=== PATIENT | female | born 1950 | race Caucasian/White ===

== ENCOUNTER 2021-05-07 07:55 | Day surgery (SDC) | payer OTHER, MEDICARE ==
[2021-05-07] MEDS ORDERED: methylPREDNISolone NA SUCC 125 MG/2 ML VIAL IVPUSH ONE (09:00)
[2021-05-07] MEDS ORDERED: ACETAMINOPHEN 500 MG TABLET (FP) PO ONE (09:30)
[2021-05-07] MEDS ORDERED: diphenhydrAMINE HCL 25 MG CAPSULE (FP) PO ONE (09:30)
[2021-05-07 09:38] LABS: BASO % 1.3 % (0-2.0); EOS % 2.1 % (0-4.5); HEMATOCRIT 40.2 % (32.4-45.2); LYMPH % 20.4 % (8-40); MCH 29.3 pg (25.7-33.7); MCHC 32.4 g/dl (32.0-36.0); MEAN CELL VOLUME 90.4 fl (80-96); MEAN PLT VOLUME 8.8 fl (7.5-11.1); MONO % 7.7 % (3.8-10.2); NEUT % 68.5 % (42.8-82.8); PLATELET COUNT 257 10^3/uL (134-434); RBC 4.45 M/mm3 (3.60-5.2); RDW 14.5 % (11.6-15.6); WHITE BLOOD COUNT 7.5 K/mm3 (4.0-10.0)
[2021-05-07 09:53] LABS: CALCIUM 9.7 mg/dL (8.5-10.1)
[2021-05-07 09:54] LABS: ALBUMIN 3.8 g/dl (3.4-5.0); BLOOD UREA NITROGEN 29.6 mg/dL (7-18)
[2021-05-07 09:57] LABS: CREATININE 1.1 mg/dL (0.55-1.3); TOT PROT 7.8 g/dl (6.4-8.2)
[2021-05-07 09:58] LABS: BILIRUBIN,TOTAL 0.3 mg/dL (0.2-1)
[2021-05-07] MEDS ORDERED: RITUXIMAB-ABBS 1,000 MG in DEXTROSE 5%-WATER - 400 ML IVPB ONE (10:00)
[2021-05-07 15:22] VITALS: BP 153/70; PULSE 85; TEMP 98
== END 2021-05-07 17:30 | disposition home or self-care (01) ==
LOC: JCHEMO 07:55 → J7W 07:56 → JCHEMO 17:30
PROVIDERS: ATTEND Internal Medicine Rheumatology
DX: M06.9 Rheumatoid arthritis, unspecified (principal); J84.9 Interstitial pulmonary disease, unspecified
CPT/HCPCS: 36415; 80053; 85025; 96367; 96413; 96415; Q5115

== ENCOUNTER 2021-05-22 08:26 | Day surgery (SDC) | payer OTHER, MEDICARE ==
[2021-05-22] MEDS ORDERED: methylPREDNISolone NA SUCC 125 MG/2 ML VIAL IVPUSH ONE (08:30)
[2021-05-22] MEDS ORDERED: ACETAMINOPHEN 500 MG TABLET (FP) PO ONE (08:30)
[2021-05-22] MEDS ORDERED: diphenhydrAMINE HCL 25 MG CAPSULE (FP) PO ONE (08:30)
[2021-05-22] MEDS ORDERED: methylPREDNISolone NA SUCC 125 MG/2 ML VIAL IVPB ONE ×2 (08:45)
[2021-05-22] MEDS ORDERED: RITUXIMAB-ABBS 1,000 MG in DEXTROSE 5%-WATER - 400 ML IVPB ONE (09:00)
[2021-05-22 17:57] VITALS: BP 127/64; PULSE 75; TEMP 98.2
== END 2021-05-22 13:36 | disposition home or self-care (01) ==
LOC: JCHEMO 08:26
PROVIDERS: ATTEND Internal Medicine Rheumatology
PROC: 3E03305 Introduction of Other Antineoplastic into Peripheral Vein, Percutaneous Approach (ICD-10-PCS; principal; 2021-05-22)
PROC: 3E033GC Introduction of Other Therapeutic Substance into Peripheral Vein, Percutaneous Approach (ICD-10-PCS; 2021-05-22)
DX: M06.9 Rheumatoid arthritis, unspecified (principal); Z88.0 Allergy status to penicillin
CPT/HCPCS: 96367; 96413; 96415; Q5115

== ENCOUNTER 2022-01-06 08:49 | Day surgery (SDC) | payer OTHER, MEDICARE ==
[2022-01-06] MEDS ORDERED: METHYLPREDNISOLONE NA SUCC 100 MG in SODIUM CHLORIDE 50 ML IVPB ONE (10:00)
[2022-01-06] MEDS ORDERED: methylPREDNISolone NA SUCC 125 MG/2 ML VIAL IVPUSH ONE (10:00)
[2022-01-06] MEDS ORDERED: ACETAMINOPHEN 500 MG TABLET (FP) PO ONE (10:00)
[2022-01-06] MEDS ORDERED: diphenhydrAMINE HCL 25 MG CAPSULE (FP) PO ONE (10:00)
[2022-01-06] MEDS ORDERED: RITUXIMAB-ABBS 1,000 MG in DEXTROSE 5%-WATER - 400 ML IVPB ONE (10:30)
[2022-01-06 14:59] VITALS: BP 150/81; PULSE 100; RESP 18; TEMP 98.2
== END 2022-01-06 15:44 | disposition home or self-care (01) ==
LOC: JCHEMO 08:49 → J7W 08:50 → JCHEMO 15:44
PROVIDERS: ATTEND Internal Medicine Rheumatology
DX: M06.9 Rheumatoid arthritis, unspecified (principal)
CPT/HCPCS: 96367; 96413; 96415; Q5115

== ENCOUNTER 2022-01-20 07:56 | Day surgery (SDC) | payer OTHER, MEDICARE ==
[2022-01-20] MEDS ORDERED: METHYLPREDNISOLONE NA SUCC 100 MG in SODIUM CHLORIDE 50 ML IVPB ONE (09:00)
[2022-01-20] MEDS ORDERED: ACETAMINOPHEN 500 MG TABLET (FP) PO ONE (09:00)
[2022-01-20] MEDS ORDERED: diphenhydrAMINE HCL 25 MG CAPSULE (FP) PO ONE (09:00)
[2022-01-20] MEDS ORDERED: RITUXIMAB-ABBS 1,000 MG in DEXTROSE 5%-WATER - 400 ML IVPB ONE (09:30)
[2022-01-20 15:37] VITALS: BP 134/72; PULSE 86; RESP 20; TEMP 97.8
== END 2022-01-20 14:40 | disposition home or self-care (01) ==
LOC: JCHEMO 07:56 → J7W 07:57 → JCHEMO 14:40
PROVIDERS: ATTEND Internal Medicine Rheumatology
DX: M06.9 Rheumatoid arthritis, unspecified (principal)
CPT/HCPCS: 96367; 96413; 96415; Q5115

== ENCOUNTER 2022-06-23 12:40 | Day surgery (SDC) | payer OTHER, MEDICARE ==
[~2022-06-23 12:40] MED LIST: ACETAMINOPHEN 500 MG TABLET (FP) PO ONE; METHYLPREDNISOLONE NA SUCC 100 MG in SODIUM CHLORIDE 50 ML IVPB ONE; RITUXIMAB-ABBS 1,000 MG in DEXTROSE 5%-WATER - 400 ML IVPB ONE; diphenhydrAMINE HCL 25 MG CAPSULE (FP) PO ONE
[2022-06-23 18:26] VITALS: TEMP 98
[2022-06-23 18:31] VITALS: BP 124/73; PULSE 91; RESP 20
== END 2022-06-23 17:55 | disposition home or self-care (01) ==
LOC: JCHEMO 12:40 → J7W 12:47 → JCHEMO 17:55
PROVIDERS: ATTEND Internal Medicine Rheumatology
DX: M06.9 Rheumatoid arthritis, unspecified (principal)
CPT/HCPCS: 96413; 96415; Q5115

== ENCOUNTER 2022-07-07 09:07 | Day surgery (SDC) | payer OTHER, MEDICARE ==
[~2022-07-07 09:07] MED LIST changes: -RITUXIMAB-ABBS 1,000 MG in DEXTROSE 5%-WATER - 400 ML IVPB ONE
[2022-07-07] MEDS ORDERED: RITUXIMAB-ABBS 1,000 MG in DEXTROSE 5%-WATER - 400 ML IVPB ONE (09:30)
[2022-07-07 18:08] VITALS: RESP 20; TEMP 98
[2022-07-07 18:14] VITALS: BP 156/87; PULSE 89
== END 2022-07-07 15:45 | disposition home or self-care (01) ==
LOC: JCHEMO 09:07
PROVIDERS: ATTEND Internal Medicine Rheumatology
DX: M06.9 Rheumatoid arthritis, unspecified (principal)
CPT/HCPCS: 96413; 96415; Q5115

== ENCOUNTER 2023-01-18 08:04 | Day surgery (SDC) | payer OTHER, MEDICARE ==
[2023-01-18] MEDS ORDERED: METHYLPREDNISOLONE NA SUCC 100 MG in SODIUM CHLORIDE 50 ML IVPB ONE (10:00)
[2023-01-18] MEDS ORDERED: diphenhydrAMINE HCL 25 MG CAPSULE (FP) PO ONE (10:00)
[2023-01-18] MEDS ORDERED: ACETAMINOPHEN 500 MG TABLET (FP) PO ONE (10:00)
[2023-01-18] MEDS ORDERED: RITUXIMAB-ABBS 1,000 MG in DEXTROSE 5%-WATER - 400 ML IVPB ONE (10:30)
[2023-01-18 16:41] VITALS: TEMP 97.9
[2023-01-18 16:45] VITALS: RESP 18
[2023-01-18 16:48] VITALS: BP 138/63; PULSE 90
== END 2023-01-18 14:40 | disposition home or self-care (01) ==
LOC: JCHEMO 08:04 → J7W 08:04 → JCHEMO 14:40
PROVIDERS: ATTEND Internal Medicine Rheumatology
DX: M06.9 Rheumatoid arthritis, unspecified (principal); J84.9 Interstitial pulmonary disease, unspecified
CPT/HCPCS: 96367; 96413; 96415; Q5115